=== PATIENT | male | born 1965 | race African-American/Black ===

== ENCOUNTER 2018-02-02 11:48 | Emergency (ER) | payer MEDICAID ==
--- NOTE | 2018-02-02 12:34 | ER Document Report ---
ED Medical Screen (RME) - General Chief Complaint: Anxiety Stated Complaint: ANXIETY Time Seen by Provider: 02/02/18 12:32 Notes: Patient left the emergency department approximately 6 AM. He left AGAINST MEDICAL ADVICE. Patient was seen here for anxiety. He states he is coming back in because he is very anxious and "I cannot live like this". TRAVEL OUTSIDE OF THE [place] IN LAST 30 DAYS: No - Related Data Allergies/Adverse Reactions: Penicillins Allergy (Verified 04/16/15 15:05) Past Medical History - Social History Chew tobacco use (# tins/day): No Frequency of alcohol use: Occasional Drug Abuse: Marijuana - Past Medical History Cardiac Medical History: Reports: Hx Hypertension Renal/ Medical History: Denies: Hx Peritoneal Dialysis Musculoskeltal Medical History: Reports Hx Arthritis Psychiatric Medical History: Reports: Hx Depression, Hx Schizophrenia - paranoid schizophrenia - Immunizations Hx Diphtheria, Pertussis, Tetanus Vaccination: Yes Physical Exam - Vital signs Vitals: Temp Pulse Resp BP Pulse Ox 98.0 F 90 20 123/82 99 02/02/18 11:54 02/02/18 11:54 02/02/18 11:54 02/02/18 11:54 02/02/18 11:54 Course - Vital Signs Vital signs: Temp Pulse Resp BP Pulse Ox 98.0 F 90 24 H 123/82 99 02/02/18 11:54 02/02/18 11:54 02/02/18 12:06 02/02/18 11:54 02/02/18 11:54 Doctor's Discharge - Discharge Instructions: Anxiety ([facility])
--- NOTE | 2018-02-02 13:22 | EKG REPORT ---
SEVERITY:- NORMAL ECG - SINUS RHYTHM : Confirmed by: Merrick Burkett MD 02-Feb-2018 13:21:58
[2018-02-02 13:25] LABS: ABSOLUTE EOSINOPHILS # (AUTO) 0.1 10^3/uL (0.0-0.6); ABSOLUTE LYMPHOCYTES (AUTO) 1.6 10^3/uL (0.5-4.7); ABSOLUTE MONOCYTES (AUTO) 0.7 10^3/uL (0.1-1.4); ABSOLUTE NEUT (AUTO) 4.6 10^3/uL (1.7-8.2); BASOPHILS % (AUTO) 0.4 % (0-2); EOSINOPHILS % (AUTO) 0.8 % (0-6); HEMATOCRIT 39.7 % (37.9-51.0); HEMOGLOBIN 13.7 g/dL (13.5-17.0); LYMPHOCYTES % (AUTO) 22.5 % (13-45); MEAN CORPUSCULAR HEMOGLOBIN 30.3 pg (27.0-33.4); MEAN CORPUSCULAR HGB CONC 34.6 g/dL (32.0-36.0); MEAN CORPUSCULAR VOLUME 88 fl (80-97); MONOCYTES % (AUTO) 10.5 % (3-13); PLATELET COUNT 289 10^3/uL (150-450); RED BLOOD COUNT 4.52 10^6/uL (4.35-5.55); RED CELL DISTRIBUTION WIDTH 13.9 % (11.5-14.0); SEGMENTED NEUTROPHILS % (AUTO) 65.8 % (42-78); TOTAL CELLS COUNTED % (AUTO) 100 %; WHITE BLOOD COUNT 7.1 10^3/uL (4.0-10.5)
[2018-02-02 13:34] LABS: ACETAMINOPHEN < 10 ug/mL (10-30); ALANINE AMINOTRANSFERASE 28 U/L (21-72); ALBUMIN 5.1 g/dL (3.5-5.0); ALCOHOL < 10 mg/dL (NONE DETECTED); ALKALINE PHOSPHATASE 88 U/L (38-126); ANION GAP 14 (5-19); ASPARTATE AMINO TRANSFERASE 69 U/L (17-59); BILIRUBIN,DIRECT 0.3 mg/dL (0.0-0.4); BILIRUBIN,TOTAL 0.8 mg/dL (0.2-1.3); BLOOD UREA NITROGEN 25 mg/dL (7-20); CALCIUM 10.3 mg/dL (8.4-10.2); CARBON DIOXIDE 29 mmol/L (22-30); CHLORIDE 100 mmol/L (98-107); GLUCOSE 104 mg/dL (75-110); POTASSIUM 4.3 mmol/L (3.6-5.0); SALICYLATE < 1.0 mg/dL (2.0-20.0); SODIUM 142.6 mmol/L (137-145); TOTAL PROTEIN 8.2 g/dL (6.3-8.2)
[2018-02-02 13:54] LABS: APPEARANCE,URINE CLEAR; BILIRUBIN,URINE NEGATIVE (NEGATIVE); COLOR,URINE YELLOW; GLUCOSE, URINE NEGATIVE (NEGATIVE); KETONES,URINE TRACE mg/dL (NEGATIVE); LEUKOCYTE ESTERASE,URINE NEGATIVE (NEGATIVE); NITRITE,URINE NEGATIVE (NEGATIVE); PROTEIN,URINE NEGATIVE (NEGATIVE); URINE SPECIFIC GRAVITY 1.021; UROBILINOGEN,URINE NEGATIVE mg/dL (<2.0)
[2018-02-02 14:08] LABS: URINE BARBITURATES SCREEN NEGATIVE; URINE BENZODIAZEPINES SCREEN NEGATIVE; URINE COCAINE SCREEN UNCONFIRMED POSITIVE; URINE MARIJUANA (THC) SCREEN UNCONFIRMED POSITIVE; URINE METHADONE SCREEN NEGATIVE; URINE PHENCYCLIDINE SCREEN NEGATIVE
[2018-02-02] MEDS ORDERED: HYDROXYZINE PAMOATE 50 MG CAPSULE PO ONE (14:15)
--- NOTE | 2018-02-02 14:46 | ER Document Report ---
ED General - General Chief Complaint: Anxiety Stated Complaint: ANXIETY Time Seen by Provider: 02/02/18 12:32 Notes: The patient is a 52-year-old male, past medical history of polysubstance abuse, anxiety, presents with increased feelings of anxiety. He says he recently smoked crack. Patient denies SI, HI, chest pain, shortness of breath, nausea or vomiting. TRAVEL OUTSIDE OF THE [place] IN LAST 30 DAYS: No - Related Data Allergies/Adverse Reactions: Penicillins Allergy (Verified 04/16/15 15:05) Past Medical History - General Information source: Patient - Social History Smoking Status: Current Every Day Smoker Chew tobacco use (# tins/day): No Frequency of alcohol use: Occasional Drug Abuse: Marijuana Family History: Reviewed & Not Pertinent Patient has suicidal ideation: No Patient has homicidal ideation: No - Past Medical History Cardiac Medical History: Reports: Hx Hypertension Renal/ Medical History: Denies: Hx Peritoneal Dialysis Musculoskeltal Medical History: Reports Hx Arthritis Psychiatric Medical History: Reports: Hx Depression, Hx Schizophrenia - paranoid schizophrenia - Immunizations Hx Diphtheria, Pertussis, Tetanus Vaccination: Yes Hx Pneumococcal Vaccination: 10/13/13 Review of Systems - Review of Systems Notes: REVIEW OF SYSTEMS: CONSTITUTIONAL: -fevers, -chills EENT: -eye pain, -difficulty swallowing, -nasal congestion CARDIOVASCULAR: -chest pain, -syncope. RESPIRATORY: -cough, -SOB GASTROINTESTINAL: -abdominal pain, -nausea, -vomiting, -diarrhea GENITOURINARY: -dysuria, -hematuria MUSCULOSKELETAL: -back pain, -neck pain SKIN: -rash or skin lesions. HEMATOLOGIC: -easy bruising or bleeding. LYMPHATIC: -swollen, enlarged glands. NEUROLOGICAL: -altered mental status or loss of consciousness, -headache, - neurologic symptoms PSYCHIATRIC: +anxiety, -depression. ALL OTHER SYSTEMS REVIEWED AND NEGATIVE. Physical Exam - Vital signs Vitals: Temp Pulse Resp BP Pulse Ox 98.0 F 90 20 123/82 99 02/02/18 11:54 02/02/18 11:54 02/02/18 11:54 02/02/18 11:54 02/02/18 11:54 - Notes Notes: PHYSICAL EXAMINATION: GENERAL: Well-appearing, well-nourished and in no acute distress. Fidgety. HEAD: Atraumatic, normocephalic. EYES: Pupils equal round and reactive to light, extraocular movements intact, sclera anicteric, conjunctiva are normal. ENT: nares patent, oropharynx clear without exudates. Moist mucous membranes. NECK: Normal range of motion, supple without lymphadenopathy LUNGS: Breath sounds clear to auscultation bilaterally and equal. No wheezes rales or rhonchi. HEART: Regular rate and rhythm without murmurs ABDOMEN: Soft, nontender, normoactive bowel sounds. No guarding, no rebound. No masses appreciated. EXTREMITIES: Normal range of motion, no pitting or edema. No cyanosis. NEUROLOGICAL: Cranial nerves grossly intact. Normal speech, normal gait. Normal sensory and motor exams. PSYCH: Appears anxious and fidgety. SKIN: Warm, Dry, normal turgor, no rashes or lesions noted. Course - Re-evaluation Re-evalutation: Patient has no complaints this time, other than feeling anxious. He does admit to cocaine abuse recently and he has signs of sympathomimetic use. Mental health evaluated patient and is recommending discharge with outpatient follow- up. No IVC criteria. Spoke to patient about stopping cocaine abuse to help his anxiety and he understands. Also provided and follow-up at [facility]. - Vital Signs Vital signs: Temp Pulse Resp BP Pulse Ox 97.8 F 78 20 120/78 100 02/02/18 14:49 02/02/18 14:49 02/02/18 14:49 02/02/18 14:49 02/02/18 14:49 - Laboratory Result Diagrams: 02/02/18 13:00 02/02/18 13:00 Laboratory results interpreted by me: 02/02/18 02/02/18 13:00 13:23 BUN 25 H Calcium 10.3 H AST 69 H Albumin 5.1 H Urine Ketones TRACE H Salicylates < 1.0 L Acetaminophen < 10 L Discharge - Discharge Clinical Impression: Anxiety, Polysubstance abuse Condition: Stable Disposition: HOME, SELF-CARE Instructions: Anxiety ([facility]) Additional Instructions: Your increased anxiety is most likely related to cocaine abuse. Stop using cocaine and you may feel better. Go to [facility] for rehab. COCAINE ABUSE: Cocaine causes many dangerous medical problems. Problems can occur even with "usual" amounts. Cocaine affects judgement, creating a sense of invulnerability. Cocaine users often make bad decisions that seem "great" at the time. Most cocaine users eventually will be hurt by bad job performance, damaged personal relations, crime, and unsafe sexual practices. Toxic effects of cocaine can include seizures, hallucinations, delusions, high blood pressure, heart damage, or sudden . There's always the risk of a "bad batch." But heart attacks, brain hemorrhages, or cardiac arrest can occur unpredictably even with "normal" use. Injection of cocaine is risky for abscesses, endocarditis (heart infection) , pneumonia, and AIDS. Withdrawal from cocaine often causes anxiety and drug cravings. Some users become paranoid and psychotic. Many treatment programs are available, but you must make the decision to quit. Medication can be prescribed to control the symptoms of cocaine toxicity (beta blockers or benzodiazepines). Withdrawal symptoms may require tranquilizers. OVERDOSE / INGESTION: You have taken more medication than you should have. After your evaluation and care, it is felt that your overdose is not likely to be harmful or of any significant consequences to you and you are being discharged. In the future, you should be careful not to take more medications than what is prescribed for you. Although your overdose does not seem to be of any danger to you at this time, if you develop any unusual or unexpected symptoms after your discharge, you should return to the Emergency Department immediately for re-evaluation. INSTRUCTIONS FOR HOME CARE FOLLOWING DRUG OVERDOSAGE: The doctor feels it's safe for you to go home. You will need to be observed. If charcoal and a laxative was given to you, expect some loose black stools soon. Take no medications unless approved by a physician, including alcohol. If drowsy, lie on your stomach or side for sleeping to avoid aspiration if vomiting occurs. Take only liquids by mouth until there is no more nausea. FOR THE OBSERVER: Observe the patient for the next 24 hours and call or go to the hospital if any of the following are noted: prolonged or repeated vomiting, difficulty in arousing, convulsions (seizures or fits), fever, persistent cough, breathing that is too slow or too rapid, or confused or bizarre behavior. If a counselling visit has been arranged, make sure the patient attends. Call the physician or poison control if you have questions. FOLLOW-UP CARE: If you have been referred to a physician for follow-up care, call the physician s office for an appointment as you were instructed or within the next two days. If you experience worsening or a significant change in your symptoms, notify the physician immediately or return to the Emergency Department at any time for re-evaluation. Referrals: ADAMA KNIGHT MD [Primary Care Provider] - Follow up as needed [facility] [Outside] - Follow up as needed
[2018-02-02 14:56] VITALS: BP 120/78
== END 2018-02-02 14:56 | disposition home or self-care (01) ==
LOC: ER 11:48
DX: F14.10 Cocaine abuse, uncomplicated (principal); F12.10 Cannabis abuse, uncomplicated; F41.9 Anxiety disorder, unspecified; I10 Essential (primary) hypertension; F17.200 Nicotine dependence, unspecified, uncomplicated; Z88.0 Allergy status to penicillin
CPT/HCPCS: 36415; 80053; 80307; 81001; 85025; 93005; 93010; 99284

== ENCOUNTER 2018-02-09 18:20 | Emergency (ER) | payer MEDICAID ==
[2018-02-09] MEDS ORDERED: OLANZAPINE 5 MG TAB.RAPDIS PO ONE (18:28)
--- NOTE | 2018-02-09 18:29 | ER Document Report ---
ED Psych Disorder / Suicide - General Mode of Arrival: Medic Information source: Patient TRAVEL OUTSIDE OF THE [place] IN LAST 30 DAYS: No <LONNIE MYLES - Last Filed: 02/09/18 22:35> <KARY PYLE - Last Filed: 02/10/18 01:49> - General Stated Complaint: PSYCH EVAL Time Seen by Provider: 02/09/18 18:23 Notes: Patient is a 52 year old male with a history of schizophrenia, depression and hypertension presents to the emergency department via EMS complaining of depression and paranoia. EMS states the patient called them wanting to be driven to the emergency department to receive a mental health evaluation. EMS states prior arrival to the emergency department the patient became erratic and paranoid further stating the patient thought someone was coming to kill him. At bedside patient states he has been depressed and has ran out of his medications. (LONNIE MYLES) - Related Data Allergies/Adverse Reactions: Penicillins Allergy (Verified 04/16/15 15:05) Past Medical History - General Information source: Patient, Emergency Med Personnel - Social History Smoking Status: Unknown if Ever Smoked Family History: Reviewed & Not Pertinent - Past Medical History Cardiac Medical History: Reports: Hx Hypertension Musculoskeltal Medical History: Reports Hx Arthritis Psychiatric Medical History: Reports: Hx Depression, Hx Schizophrenia - paranoid schizophrenia - Immunizations Hx Diphtheria, Pertussis, Tetanus Vaccination: Yes Hx Pneumococcal Vaccination: 10/13/13 <LONNIE MYLES - Last Filed: 02/09/18 22:35> Review of Systems - Review of Systems Constitutional: No symptoms reported EENT: No symptoms reported Cardiovascular: No symptoms reported Respiratory: No symptoms reported Gastrointestinal: No symptoms reported Genitourinary: No symptoms reported Male Genitourinary: No symptoms reported Musculoskeletal: No symptoms reported Skin: No symptoms reported Hematologic/Lymphatic: No symptoms reported Neurological/Psychological: See HPI, Depression, Hallucinations -: Yes All other systems reviewed and negative <LONNIE MYLES - Last Filed: 02/09/18 22:35> Physical Exam <LONNIE MYLES - Last Filed: 02/09/18 22:35> <KARY PYLE - Last Filed: 02/10/18 01:49> - Vital signs Vitals: Temp Pulse Resp BP Pulse Ox 98.7 F 143 H 16 120/74 96 02/09/18 18:50 02/09/18 18:50 02/09/18 18:50 02/09/18 18:50 02/09/18 18:50 - Notes Notes: GENERAL: Alert. Restless. HEAD: Normocephalic, atraumatic. EYES: Pupils equal, round, and reactive to light. Extraocular movements intact. ENT: Oral mucosa dry, tongue midline. NECK: Full range of motion. Supple. Trachea midline. HEART: Regular rate and rhythm. No murmurs, gallops, or rubs. ABDOMEN: Soft, non-tender. Non-distended. Bowel sounds present in all 4 quadrants. EXTREMITIES: Moves all 4 extremities spontaneously. No edema, radial and dorsalis pedis pulses 2/4 bilaterally. No cyanosis. NEUROLOGICAL: Alert and oriented x3. Normal speech. PSYCH: Restless, responds to stimuli others in the room do not respond to. Psychomotor agitation. SKIN: Warm, dry, normal turgor. No rashes or lesions noted. (LONNIE MYLES) Course - Laboratory Result Diagrams: 02/09/18 18:30 02/09/18 18:30 <LONNIE MYLES - Last Filed: 02/09/18 22:35> - Laboratory Result Diagrams: 02/09/18 18:30 02/10/18 00:12 <KARY PYLE - Last Filed: 02/10/18 01:49> - Re-evaluation Re-evalutation: 02/10/18 01:48 Patient is a 52-year-old male who presents responding to internal stimuli. He appears to be hallucinating. Patient has a history of schizophrenia and apparently has been off his medication for at least a month. He does not know the names of what he is supposed to be on. Patient was picked up by EMS and was , initially and then was screaming in the ambulance as he thinks that people are following him in trying to kill him. Patient has been placed on involuntary commitment paperwork. His initial heart rate was in the 140s and CO2 16. These both have resolved with fluids. Patient is medically stable at this time. Urine culture has been sent. Patient does not have any dysuria. ( KARY PYLE) - Vital Signs Vital signs: Temp Pulse Resp BP Pulse Ox 98.7 F 88 16 120/74 96 02/09/18 18:50 02/09/18 23:00 02/09/18 18:50 02/09/18 18:50 02/09/18 18:50 - Laboratory Laboratory results interpreted by me: 02/09/18 02/09/18 02/10/18 18:30 21:28 00:12 Sodium 145.6 H Carbon Dioxide 16 L Anion Gap 29 H Creatinine 1.77 H 1.39 H Est GFR ( Amer) 49 L Est GFR (Non-Af Amer) 41 L 54 L Glucose 238 H Calcium 10.7 H 10.3 H Total Protein 8.4 H Albumin 5.5 H Urine Protein 100 H Urine Blood SMALL H Salicylates < 1.0 L Acetaminophen < 10 L Discharge <LONNIE MYLES - Last Filed: 02/09/18 22:35> <KARY PYLE - Last Filed: 02/10/18 01:49> - Discharge Clinical Impression: Hallucinations Condition: Stable Disposition: PSYCH HOSP/UNIT Scribe Attestation: 02/10/18 01:49 I personally performed the services described in the documentation, reviewed and edited the documentation which was dictated to the scribe in my presence, and it accurately records my words and actions. (KARY PYLE) Scribe Documentation - Scribe Written by Scribe:: Melanie Roper, 02/09/2018 19:01 acting as scribe for :: Edward <LONNIE MYLES - Last Filed: 02/09/18 22:35>
[2018-02-09 18:50] LABS: ABSOLUTE LYMPHOCYTES (AUTO) 3.3 10^3/uL (0.5-4.7); ABSOLUTE MONOCYTES (AUTO) 0.9 10^3/uL (0.1-1.4); ABSOLUTE NEUT (AUTO) 4.8 10^3/uL (1.7-8.2); BASOPHILS % (AUTO) 0.1 % (0-2); EOSINOPHILS % (AUTO) 0.4 % (0-6); HEMATOCRIT 42.3 % (37.9-51.0); HEMOGLOBIN 13.9 g/dL (13.5-17.0); LYMPHOCYTES % (AUTO) 36.9 % (13-45); MEAN CORPUSCULAR HEMOGLOBIN 29.9 pg (27.0-33.4); MEAN CORPUSCULAR HGB CONC 32.9 g/dL (32.0-36.0); MEAN CORPUSCULAR VOLUME 91 fl (80-97); MONOCYTES % (AUTO) 9.4 % (3-13); PLATELET COUNT 283 10^3/uL (150-450); RED BLOOD COUNT 4.65 10^6/uL (4.35-5.55); SEGMENTED NEUTROPHILS % (AUTO) 53.2 % (42-78); TOTAL CELLS COUNTED % (AUTO) 100 %; WHITE BLOOD COUNT 9.1 10^3/uL (4.0-10.5)
[2018-02-09 19:11] LABS: ALANINE AMINOTRANSFERASE 25 U/L (21-72); ALBUMIN 5.5 g/dL (3.5-5.0); ALKALINE PHOSPHATASE 96 U/L (38-126); ASPARTATE AMINO TRANSFERASE 39 U/L (17-59); BILIRUBIN,DIRECT 0.3 mg/dL (0.0-0.4); BILIRUBIN,TOTAL 0.9 mg/dL (0.2-1.3); BLOOD UREA NITROGEN 15 mg/dL (7-20); CALCIUM 10.7 mg/dL (8.4-10.2); GLUCOSE 238 mg/dL (75-110); POTASSIUM 4.1 mmol/L (3.6-5.0); TOTAL PROTEIN 8.4 g/dL (6.3-8.2)
[2018-02-09 19:16] LABS: CARBON DIOXIDE 16 mmol/L (22-30); CHLORIDE 99 mmol/L (98-107)
[2018-02-09 19:17] LABS: ACETAMINOPHEN < 10 ug/mL (10-30); ALCOHOL < 10 mg/dL (NONE DETECTED); ANION GAP 29 (5-19); SALICYLATE < 1.0 mg/dL (2.0-20.0)
[2018-02-09] MEDS ORDERED: NORMAL SALINE 1000 ML 1,000 ML IV ONE (19:51)
[2018-02-09 21:49] LABS: AMORPHOUS SEDIMENT,URINE TRACE /HPF; APPEARANCE,URINE CLOUDY; BILIRUBIN,URINE NEGATIVE (NEGATIVE); COLOR,URINE YELLOW; GLUCOSE, URINE NEGATIVE (NEGATIVE); KETONES,URINE NEGATIVE (NEGATIVE); LEUKOCYTE ESTERASE,URINE NEGATIVE (NEGATIVE); NITRITE,URINE NEGATIVE (NEGATIVE); PROTEIN,URINE 100 mg/dL (NEGATIVE); URINE SPECIFIC GRAVITY 1.017; UROBILINOGEN,URINE NEGATIVE mg/dL (<2.0)
--- NOTE | 2018-02-09 22:26 | EKG REPORT ---
SEVERITY:- BORDERLINE ECG - SINUS TACHYCARDIA PROBABLE LEFT ATRIAL ABNORMALITY : Confirmed by: Marie Ramirez 09-Feb-2018 22:26:46
[2018-02-09 22:47] LABS: URINE BARBITURATES SCREEN NEGATIVE; URINE BENZODIAZEPINES SCREEN NEGATIVE; URINE COCAINE SCREEN NEGATIVE; URINE MARIJUANA (THC) SCREEN UNCONFIRMED POSITIVE; URINE METHADONE SCREEN NEGATIVE; URINE PHENCYCLIDINE SCREEN NEGATIVE
[2018-02-09] MEDS ORDERED: 1/2 NORMAL SALINE 1,000 ML IV ONE (22:50)
[2018-02-10 00:47] LABS: BLOOD UREA NITROGEN 16 mg/dL (7-20); CALCIUM 10.3 mg/dL (8.4-10.2); CHLORIDE 104 mmol/L (98-107); GLUCOSE 83 mg/dL (75-110); POTASSIUM 4.2 mmol/L (3.6-5.0); SODIUM 145.6 mmol/L (137-145)
[2018-02-10 00:57] LABS: ANION GAP 14 (5-19)
[2018-02-10 01:02] LABS: CARBON DIOXIDE 28 mmol/L (22-30)
--- NOTE | 2018-02-10 09:17 | ER Document Report ---
Doctor's Note Notes: 02/10/18 09:15 This is a 52-year-old man with a history of schizophrenia that was brought into the emergency room with increasing depression and paranoia. The patient's vital signs have been stable. The patient's labs are relatively stable (the patient's initial creatinine was 1.7 on repeat shows 1.9, his initial glucose was elevated at 283 and repeat this morning is normal). Patient did have some pyuria and bacteriuria without any urinary symptoms, urinary culture has been negative after 1 day. Patient is being followed by the psychology team. Patient is resting comfortably and easily aroused. He does have an abrasion to the left cheek which he states he has been picking at (there is no signs of infection). Repeat UA is much improved. Given this and lack of symptoms, will continue to follow the urine culture. 02/10/18 09:31 02/10/18 09:33 02/10/18 12:13 I discussed case with print binding and finishing worker and they have given the patient resources/shelters. He is cleared from a psychiatric point of view. He is stable medically at this time. I advised to follow-up with a primary care doctor. He has been given the number of the [facility] which is a free clinic affiliated with the hospital. 02/10/18 12:15
[2018-02-10] MEDS ORDERED: LORATADINE 10 MG TABLET PO ONE (10:11)
[2018-02-10 11:04] LABS: APPEARANCE,URINE SLIGHTLY-CLOUDY; BILIRUBIN,URINE NEGATIVE (NEGATIVE); COLOR,URINE YELLOW; GLUCOSE, URINE NEGATIVE (NEGATIVE); KETONES,URINE NEGATIVE (NEGATIVE); LEUKOCYTE ESTERASE,URINE NEGATIVE (NEGATIVE); NITRITE,URINE NEGATIVE (NEGATIVE); PROTEIN,URINE 30 mg/dL (NEGATIVE); URINE SPECIFIC GRAVITY 1.029
--- NOTE | 2018-02-10 11:21 | PSYCHOLOGICAL NOTE ---
Psych Note - Psych Note Psych Note: Reason for consult: Paranoia / schizophrenia Patient is a 52-year-old male. Patient reports he needs help with his housing situation. Patient reports he wants to know what he needs to do to get back on his feet. Patient reports that he has not been using cocaine but has smoked "crack". Patient reports that he started to smoking weed, and the lead had crack in it so he got addicted. Patient reports that before getting addicted to drugs he used to hear voices and so he was trying to numb that out with drugs. 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 Patient reports he applied for disability and with this time started smoking marijuana. Patient reports that after smoking marijuana he began doing other drugs and stated if he knew how addicted he would become he would have never used it. Patient reports he did not imagine a life like this. Patient reports that on a scale of 1 through 10 with 10 being things are better he is added to 2 or 3. Patient reports that to get him closer to a 3 he would have to get back on his feet and get permanent housing. Patient reports he is currently living in [facility] and states that it is a filthy place and he does not want to be there anymore. Patient reports he does not want to go to the homeless correction because they make him leave at 7 AM in the morning and you have to be there before 8 PM at night and states were my supposed to go during the day. Patient reports mental health has consent to speak with his sister Lizette who works here in the hospital. Patient reports he does not remember leaving before getting his treatment plan last time he was here when he was high. Patient reports that what stopped him from listening to the previous recommendation was transportation and finances. Patient reports "I keep trying to crawl out of it but I cannot seem to get out of it I woke up one day my life is gone and it was too late". Diagnosis: 292.9 (F9.99) unspecified other (or unknown) substance related disorder ( patient would not disclose if he actively used prior to coming to the ED but admits he uses crack cocaine on a daily basis) V Homelessness Impression/Plan: Patient is psychiatrically cleared for discharge. Recommendation to rescind involuntary commitment due to patient not meeting criteria [place] 122C. Clinician provided education about the scope of practice of the emergency department to patient. Clinician explained to patient that Medicaid has a transportation bus that will take you to your appointments, patient reported he did not know about that. Clinician provided education about the good Rx coupon and about local resources that can help you with housing, and any other resource for people with homelessness. Clinician provided education about substance abuse intensive outpatient therapy and recommends patient receive outpatient services to address his substance abuse. Patient reports he does not want to go to a detox/drug treatment facility, but states that he wants medications. Clinician observed patient has received prescriptions and has not been compliant reporting he does not fill the prescriptions due to financial issues ( per his report) but clinician observed patient has Medicaid. Clinician observed patient was here recently while intoxicated and left AGAINST MEDICAL ADVICE before clinician could finish the assessment. Patient stated it was because he knew he was not going to get the good meds. Patient referred for social work/ case management ( to address housing needs) . Attending physician in agreement with plan. Consulted with Dr. Galloway regarding the management and care of patient.
[2018-02-10 12:23] VITALS: BP 120/70
== END 2018-02-10 12:45 | disposition home or self-care (01) ==
LOC: ER 18:20
DX: F32.9 Major depressive disorder, single episode, unspecified (principal); F20.9 Schizophrenia, unspecified; F19.90 Other psychoactive substance use, unspecified, uncomplicated
CPT/HCPCS: 93005; 99285; 96360; 96361; 36415; 87086; 80307 ×4; 85025; 80048; 80053; 81001; 93010; J3490 ×2; J7030

== ENCOUNTER 2019-11-26 14:44 | Emergency (ER) | payer MEDICAID, OTHER ==
[2019-11-26 14:55] VITALS: BP 122/67
--- NOTE | 2019-11-26 15:04 | ER Document Report ---
ED Medical Screen (RME) - General Chief Complaint: Skin Problem Stated Complaint: SKIN ISSUE Time Seen by Provider: 11/26/19 15:00 Primary Care Provider: ADAMA KNIGHT MD [Primary Care Provider] - Follow up as needed TRAVEL OUTSIDE OF THE [place] IN LAST 30 DAYS: No - HPI Notes: 11/26/19 15:02 Patient is a 54-year-old male who presents complaining of a nonspecific skin ulcerations to his face into his buttock area as well as occasional pruritus and pruritus to his palms that began about a week ago. No new exposure chemicals, detergents, soaps, foods, or travel. No recent illness. No sore throat, fever, chest pain, abdominal pain, vomiting/diarrhea, dysuria. Denies any drug use. I have treated and performed a rapid initial assessment of this patient. A comprehensive ED assessment and evaluation of the patient, analysis of test results and completion of medical decision making process will be conducted by additional ED providers. PHYSICAL EXAMINATION: GENERAL: Well-appearing, well-nourished and in no acute distress. A&Ox4. Answers questions appropriately. Skin: There are ulceration type lesions to the face and neck. Other areas of skin will need to be reevaluated when in a room and gowned. - Related Data Allergies/Adverse Reactions: No Known Allergies Allergy (Verified 11/26/19 15:00) Past Medical History - Past Medical History Cardiac Medical History: Reports: Hx Hypertension Pulmonary Medical History: Reports: Hx COPD Renal/ Medical History: Denies: Hx Peritoneal Dialysis Musculoskeltal Medical History: Reports Hx Arthritis Psychiatric Medical History: Reports: Hx Depression, Hx Schizophrenia - paranoid schizophrenia - Immunizations Hx Diphtheria, Pertussis, Tetanus Vaccination: Yes Physical Exam - Vital signs Vitals: Temp Pulse Resp BP Pulse Ox 99.3 F 80 16 122/67 95 11/26/19 14:54 11/26/19 14:54 11/26/19 14:54 11/26/19 14:54 11/26/19 14:54 Course - Vital Signs Vital signs: Temp Pulse Resp BP Pulse Ox 99.3 F 80 16 122/67 95 11/26/19 14:54 11/26/19 14:54 11/26/19 14:54 11/26/19 14:54 11/26/19 14:54 Doctor's Discharge - Discharge Referrals: ADAMA KNIGHT MD [Primary Care Provider] - Follow up as needed
[2019-11-26 16:37] LABS: ABSOLUTE BASOPHILS # (AUTO) 0.1 10^3/uL (0.0-0.2); ABSOLUTE EOSINOPHILS # (AUTO) 0.1 10^3/uL (0.0-0.6); ABSOLUTE NEUT (AUTO) 4.1 10^3/uL (1.7-8.2); TOTAL CELLS COUNTED % (AUTO) 100 %
[2019-11-26 16:46] LABS: ABSOLUTE LYMPHOCYTES (AUTO) 2.1 10^3/uL (0.5-4.7); ABSOLUTE MONOCYTES (AUTO) 0.8 10^3/uL (0.1-1.4); EOSINOPHILS % (AUTO) 1.6 % (0-6); HEMATOCRIT 37.3 % (37.9-51.0); HEMOGLOBIN 12.8 g/dL (13.5-17.0); LYMPHOCYTES % (AUTO) 29.4 % (13-45); MEAN CORPUSCULAR HEMOGLOBIN 30.9 pg (27.0-33.4); MEAN CORPUSCULAR HGB CONC 34.3 g/dL (32.0-36.0); MEAN CORPUSCULAR VOLUME 90 fl (80-97); MONOCYTES % (AUTO) 11.1 % (3-13); PLATELET COUNT 161 10^3/uL (150-450); RED BLOOD COUNT 4.14 10^6/uL (4.35-5.55); RED CELL DISTRIBUTION WIDTH 14.1 % (11.5-14.0); SEGMENTED NEUTROPHILS % (AUTO) 56.9 % (42-78); WHITE BLOOD COUNT 7.1 10^3/uL (4.0-10.5)
[2019-11-26 16:48] LABS: APPEARANCE,URINE CLEAR; BILIRUBIN,URINE NEGATIVE (NEGATIVE); COLOR,URINE YELLOW; GLUCOSE, URINE NEGATIVE (NEGATIVE); KETONES,URINE NEGATIVE (NEGATIVE); PROTEIN,URINE NEGATIVE (NEGATIVE); URINE SPECIFIC GRAVITY 1.013
[2019-11-26 16:55] LABS: ALBUMIN 4.1 g/dL (3.5-5.0); ALKALINE PHOSPHATASE 74 U/L (38-126); ANION GAP 7 (5-19); ASPARTATE AMINO TRANSFERASE 24 U/L (17-59); BILIRUBIN,DIRECT 0.3 mg/dL (0.0-0.4); BILIRUBIN,TOTAL 0.4 mg/dL (0.2-1.3); BLOOD UREA NITROGEN 11 mg/dL (7-20); CALCIUM 9.3 mg/dL (8.4-10.2); CARBON DIOXIDE 32 mmol/L (22-30); CHLORIDE 101 mmol/L (98-107); GLUCOSE 91 mg/dL (75-110); POTASSIUM 3.7 mmol/L (3.6-5.0); TOTAL PROTEIN 7.2 g/dL (6.3-8.2)
[2019-11-26 17:15] LABS: URINE AMPHETAMINES SCREEN NEGATIVE; URINE BARBITURATES SCREEN NEGATIVE; URINE BENZODIAZEPINES SCREEN NEGATIVE; URINE METHADONE SCREEN NEGATIVE; URINE PHENCYCLIDINE SCREEN NEGATIVE
[2019-11-26 17:16] LABS: URINE COCAINE SCREEN UNCONFIRMED POSITIVE; URINE MARIJUANA (THC) SCREEN UNCONFIRMED POSITIVE
== END 2019-11-27 00:35 | disposition left against medical advice (07) ==
LOC: ER 14:44
DX: L98.9 Disorder of the skin and subcutaneous tissue, unspecified (principal); L29.9 Pruritus, unspecified; I10 Essential (primary) hypertension
CPT/HCPCS: 36415; 80053; 80307; 81001; 85025; 86592; 87086; 99281